=== PATIENT | female | born 1985 | race American Indian/Alaskan Native ===

== ENCOUNTER 2021-02-07 07:25 | Day surgery (SDC) | payer MEDICAID ==
[2021-02-07] MEDS ORDERED: SODIUM CHLORIDE 0.9% 1000 ML 1,000 ML IV SCH (08:00)
[2021-02-07] MEDS ORDERED: SODIUM CHLORIDE 0.9% 1000 ML 1,000 ML ONE (09:12)
--- NOTE | 2021-02-07 09:26 | Anesthesia Consultation ---
Anesthesia Consult and Med Hx Date of service: 02/07/21 - Airway Anesthetic Teeth Evaluation: Good ROM Head & Neck: Adequate Mental/Hyoid Distance: Adequate Mallampati Class: Class III Intubation Access Assessment: Possibly Difficult - Pre-Operative Health Status ASA Pre-Surgery Classification: ASA3 Proposed Anesthetic Plan: MAC - Pulmonary Hx Sleep Apnea: Yes - Cardiovascular System Hx Hypertension: Yes - Endocrine Hx Insulin Dependent Diabetes: Yes - Other Systems Hx Obesity: Yes (Morbid obesity, BMI 53.6) - Additional Comments Anesthesia Medical History Comments: bariatric evaluation
--- NOTE | 2021-02-07 09:27 | Anesthesia Day of Surgery ---
Anesthesia Day of Surgery - Day of Surgery Patient Examined: Yes Patient H&P Reviewed: Yes Patient is NPO: Yes
--- NOTE | 2021-02-07 09:29 | Discharge Summary ---
Providers - Providers Date of Admission: 02/07/2021 Date of discharge: 02/07/21 Attending physician: ERIK SOLORIO MD Primary care physician: MICKEY TOLEDO Hospitalization Reason for admission: s/p egd with bx Condition: Good Procedures: egd with bx Hospital course: Pt presented for a pre-op EGD as part of planning for up coming bariatric surgery. Procedure was uneventful and pt recovered well and was discharged to home. Disposition: DC- TO HOME OR SELFCARE Final Discharge Diagnosis (Prints w/discharge instructions): morbid obesity, gerd Core Measure Documentation - Palliative Care Palliative Care/ Comfort Measures: Not Applicable - Core Measures Any of the following diagnoses?: none Exam - Physical Exam Narrative exam: unchanged from pre-op Plan Activity: advance as tolerated Diet: low carbohydrate Follow up with: MICKEY TOLEDO MD [Primary Care Provider] - 7 Days
--- NOTE | 2021-02-07 09:30 | Operative Report ---
Operative Report Operative Report: DATE: 02/07/2021 SURGERY: Upper endoscopy. SURGEON: Andrade Pizano M.D. PROCEDURE: EGD with biopsy PRE OP DX: morbid obesity, GERD POST OP DX: morbid obesity, GERD TYPE OF ANESTHESIA: MAC. ESTIMATED BLOOD LOSS: None. COMPLICATIONS: None. SPECIMENS REMOVED: antral biopsy FINDINGS: 1. Small hiatal hernia. 2. antral gastritis INDICATIONS:INDICATION FOR PROCEDURE: Patient is a 35-year-old female with a long history of morbid obesity. She is planned to have a weight loss procedure and is here for preoperative planning EGD. PROCEDURE DETAILS: After consent was reviewed, patient was taken back to the operating room where patient was placed in the left lateral decubitus position and a bite block was placed in the mouth. After a time-out was called, MAC anesthesia was initiated. I then passed the endoscope into her oropharynx, into her esophagus, visualized the entire esophagus, which was all within normal limits. Z-line was noted to about 40cm from incisors. I then visualized the stomach and the first portion of the duodenum and there were no abnormalities I could clearly visualize except for antral gastritis. A cold forceps biopsy of the antrum was taken and will be sent to pathology to evaluate for H.pylori. I then retroflexed the scope in the stomach and visualized the hiatus and I could see a small hiatal hernia. I then desufflated the stomach and removed the endoscope. Patient tolerated procedure well and was transferred to recovery room in good and stable condition.
[2021-02-07] MEDS ORDERED: propofoL 200 MG/20 ML VIAL IV ONE (11:27)
[2021-02-07] MEDS ORDERED: fentaNYL 100 MCG/2 ML INJ ONE (11:27)
[2021-02-07] MEDS ORDERED: ONDANSETRON 4 MG/2 ML INJ ONE (11:27)
[2021-02-07 12:39] VITALS: BP 135/88
--- NOTE | 2021-02-07 17:25 | Post Anesthesia Evaluation ---
- Post Anesthesia Evaluation Patient Participated: Yes Airway Patent: Yes Stable Respiratory Function: Yes Nausea/Vomiting: No Temp > 96.8F: Yes Pain Manageable: Yes Adequeate Hydration: Yes Anesthesia Complications: No Block Receding Appropriately: Not Applicable Patient on Ventilator: No
== END 2021-02-07 07:26 | disposition home or self-care (01) ==
LOC: GIO 07:25
PROVIDERS: ATTEND Surgery
DX: K21.9 Gastro-esophageal reflux disease without esophagitis (principal); E66.01 Morbid (severe) obesity due to excess calories; K44.9 Diaphragmatic hernia without obstruction or gangrene; K29.70 Gastritis, unspecified, without bleeding; I10 Essential (primary) hypertension; J45.909 Unspecified asthma, uncomplicated; G47.30 Sleep apnea, unspecified; E11.9 Type 2 diabetes mellitus without complications; Z88.8 Allergy status to other drugs, medicaments and biological substances; Z68.43 Body mass index [BMI] 50.0-59.9, adult
CPT/HCPCS: 43239; 82962; 88305; 88342; J2405; J2704; J3010; J7030

== ENCOUNTER 2021-03-20 08:12 | Outpatient (CLI) | payer MEDICAID ==
--- NOTE | 2021-03-20 09:29 | Fluoroscopy Report ---
BARIUM SWALLOW Indication: MORBID OBESITY. Technique: Single and double contrast barium technique utilized to evaluate the esophagus. FINDINGS: To begin the exam, swallowing was evaluated in the lateral position under direct fluorosco py. Swallowing was normal. No mucosal irregularity, mass, mass effect, or critical stenosis. There were no abnormal tertiary c ontractions as seen with dysmotility. No gastroesophageal reflux. IMPRESSION: Unremarkable exam. Fluoroscopic time: 1.1 minutes Number of fluoroscopic images: 25 Signer Name: Be Campos Jr, MD Signed: 03/20/2021 9:25 AM Workstation Name: [id number]
== END 2021-03-20 08:13 | disposition home or self-care (01) ==
LOC: FLUORO 08:12
PROVIDERS: ATTEND Surgery
DX: E66.01 Morbid (severe) obesity due to excess calories (principal)
CPT/HCPCS: 74220

== ENCOUNTER 2021-04-10 06:13 | Inpatient (IN) | payer MEDICAID ==
[2021-04-05 10:47] LABS: Hematocrit 36.1 % (30.3-42.9); Hemoglobin 11.9 gm/dl (10.1-14.3); Mean Corpuscular HGB Conc 33 % (30-34); Mean Corpuscular Volume 82 fl (79-97); Platelet Count 344 K/mm3 (140-440); Red Blood Count 4.41 M/mm3 (3.65-5.03); Red Cell Distribution Width 15.1 % (13.2-15.2)
[2021-04-05 11:19] LABS: Alanine Aminotransferase 18 units/L (7-56); Albumin 3.8 g/dL (3.9-5); Blood Urea Nitrogen 16 mg/dL (7-17); Hemolysis Index 1
[2021-04-05 11:20] LABS: BUN/Creatinine Ratio 32
--- NOTE | 2021-04-05 14:15 | Anesthesia Consultation ---
Anesthesia Consult and Med Hx Date of service: 04/10/21 - Airway Anesthetic Teeth Evaluation: Chipped ROM Head & Neck: Adequate Mental/Hyoid Distance: Adequate Mallampati Class: Class III Intubation Access Assessment: Probably Good - Pre-Operative Health Status ASA Pre-Surgery Classification: ASA3 Proposed Anesthetic Plan: General - Pre-Anesthesia Comment Pre-Anesthesia Comments: Severe PONV - Pulmonary Hx Asthma: Yes (Last used inhaler 01/2021) Hx Sleep Apnea: Yes - Cardiovascular System Hx Hypertension: Yes (Mild, not being treated) Hx Coronary Artery Disease: No (+Cardiac/Pulmonary/PCP clearances) - Central Nervous System Hx Psychiatric Problems: No - Endocrine Hx Renal Disease: Yes (Stage 1) Hx Insulin Dependent Diabetes: Yes Hx Non-Insulin Dependent Diabetes: Yes (7.6) Hx Thyroid Disease: Yes (Goiter-thryoidectomy) - Hematic Hx Sickle Cell Disease: No - Other Systems Hx Cancer: No Hx Obesity: Yes (Morbid obesity, BMI 53.6)
[~2021-04-10 06:13] MED LIST: ACETAMINOPHEN IV 1,000 MG/100 ML BOTTLE IV NR; ENOXAPARIN 40 MG/0.4 ML INJ SUB-Q NR; GABAPENTIN 500 MG/10 ML ORAL LIQD PO NR; MIDAZOLAM 2 MG/2 ML INJ IV NR; SCOPOLAMINE TRANSDERMAL PATCH 72 HR TD NR; methOCARBAMOL 1,000 MG in SODIUM CHLORIDE 0.9% 250ML 250 ML IV NR; metroNIDAZOLE/NS 500 MG/100 ML 500 MG/100 ML BAG IV NR
[2021-04-10] MEDS: LACTATED RINGERS 1,000 ML IV SCH (06:59)
[2021-04-10] MEDS ORDERED: KETAMINE/STERILE WATER 50 MG/ML SYRINGE ONE ×2 (07:00→09:43)
--- NOTE | 2021-04-10 07:00 | Anesthesia Day of Surgery ---
Anesthesia Day of Surgery - Day of Surgery Patient Examined: Yes Patient H&P Reviewed: Yes Patient is NPO: Yes
[2021-04-10] MEDS ORDERED: propofoL 200 MG/20 ML VIAL IV ONE ×4 (07:01→11:09)
[2021-04-10] MEDS ORDERED: dexAMETHasone 20 MG/5 ML VIAL ONE (07:01)
[2021-04-10] MEDS ORDERED: MAGNESIUM SULFATE 4 GM/100 ML BAG IV ONE (07:02)
[2021-04-10] MEDS ORDERED: LIDOCAINE (1%) 10 MG/1 ML VIAL 20 ML MDV ONE ×2 (07:02→07:17)
[2021-04-10] MEDS ORDERED: LIDOCAINE 0.5%/EPINEPHRINE 1:200,000 VIAL (50 ML) MDV INFILTRATI ONE (07:17)
[2021-04-10] MEDS ORDERED: BUPIVACAINE/PF (0.25%) 2.5 MG/ML 30 ML VIAL INFILTRATI ONE ×3 (07:19→08:46)
[2021-04-10] MEDS ORDERED: LIDOCAINE 1%/EPINEPHRINE 1:100,000 VIAL (20 ML) INFILTRATI ONE ×2 (07:20→08:46)
[2021-04-10] MEDS ORDERED: MIDAZOLAM 2 MG/2 ML INJ ONE (08:20)
--- OUTSIDE RECORDS SUMMARY | 2021-04-10 08:20 | External Medical Summary ---
:1985 Author Organization [facility], [facility] Address [address] [place] [address] Care Team Providers Name Role Phone Andrade Pizano Unavailable [phone] PROBLEMS Type Condition ICD9-CM [id number] Onset Condition W/U Status Risk SNOM ED Notes Code Code Dates Status Code Problem Morbid E66.01 Active confirmed 961571753 (severe) obesity due to excess calories Problem Type 2 E11.9 Active confirmed 078069693 diabetes mellitus without complications Problem Gastro-esopha K21.9 Active confirmed 629396 005 geal reflux disease without esophagitis Problem Unspecified J45.909 Active confirmed 3676992 0 asthma, uncomplicated Problem Sleep apnea, G47.30 Active confirmed 6683309 6 unspecified ALLERGIES Allergen (clinical drug Drug/Non Drug Allergy Reaction Allergy Type Onset Date Status ingredient) documented on EMR Tree Nuts Unknown Drug Allergy Active ENCOUNTERS from 1983 to 2021-04-07 Encounter Location Date Provider Diagnosis [facility] [address] [facility] [place], Andrade Pizano Morbi d (severe) obesity [address] due to e xcess calories of [facility], E66.01 ; [place] [id number] diabetes melli tus without complic ations E11.9 ; Unspeci fied asthma, uncompl icated J45.909 and Sle ep apnea, unspecif ied G47.30 IMMUNIZATIONS No Information SOCIAL HISTORY Sex Assigned At : Social History Observation Description Sex Assigned At Unknown REASON FOR REFERRAL from 1985 to 2021-04-07 Diagnosis 1 Type 2 diabetes mellitus wit hout complications (E11.9) Diagnosis 2 Morbid (severe) obesity due to excess calories (E66.01) Diagnosis 3 Sleep apnea, unspecified (G4 7.30) Diagnosis 4 Unspecified asthma, uncompli cated (J45.909) Diagnosis 5 Gastro-esophageal reflux dis ease without esophagitis (K21.9) Diagnosis 6 Hidradenitis suppurativa (L7 3.2) Diagnosis 7 Low back pain (M54.5) Referral Organization [facility] Referring Provider First Name Andrade Referring Provider Last Name Jerica Referring Provider Specialty Surgery Referred Provider Formerly [facility], - Referral Priority Routine VITAL SIGNS Height 67.5 in Mar, Weight 338.6 lbs Mar, Temperature 97.5 degrees Fahrenheit Mar, BMI 52.24 kg/m2 Mar, Blood pressure systolic 149 mm Hg Mar, Blood pressure diastolic 94 mm Hg Mar, MEDICATIONS Medication SIG (Take, Route, Notes Start Date End Date Status Frequency, Duration) Humira 40 MG/0.8ML 0.8 ml Subcutaneous 1x/week. last Not-Taking for 30 day(s) dose 03/24 Basaglar KwikPen 100 as directed BID Act farhana UNIT/ML Subcutaneous Fluticasone-Salmeter Acti ve ol Montelukast Sodium 1 tablet Orally A ctive 10 MG Once a day for 30 day(s) Ondansetron 4 MG 1-2 tablet on the Mar, Active tongue and allow to dissolve Orally q 4-6 hours prn nausea for 30 day(s) Lisinopril 5 MG 1 tablet Orally Not- Taking Once a day for 30 day(s) Admelog SoloStar 100 as directed 90 units Act farhana UNIT/ML Subcutaneous before meals TID Acetaminophen 500 MG 1 tablet as needed Active Orally every 6 hrs Albuterol Sulfate prn Active HFA Omeprazole 40 MG 1 capsule 30 Mar, Acti ve minutes before morning meal Orally Once a day for 30 day(s) HYDROcodone-Acetamin 15 ml as needed Mar,Mar, Active ophen 7.5-325 Orally every 6 hrs 2020 MG/15ML for 7 days PROCEDURES No Information RESULTS No Results REASON FOR VISIT PreOp Bypass MEDICAL (GENERAL) HISTORY Type Description Date Medical History renal insufficiency Medical History htn Medical History anemia Medical History sleep apnea Medical History asthma Medical History gerd Medical History knee zohaib Medical History back pain Medical History hyadrenitis Surgical History 2014 Surgical History partrial thyroidectomy 12/2018 Surgical History hysteroscopy, D&C 08/2019 Hospitalization History as above Goals Section No Information Health Concerns No Information MEDICAL EQUIPMENT No Information MENTAL STATUS No Information FUNCTIONAL STATUS No Information ASSESSMENTS Encounter Date Diagnosis Assessment Notes Treatment Notes Treatm ent Clinical Notes Mar, Morbid (severe) An hour was spent obesity due to with patient excess calories reinforcing diet, (ICD-10 - E66.01) vitamin requirements and lifestyle education, A quiz was administered and reviewed to verify understanding of intended procedure and post operative care. Consent forms were reviewed with patient and signed answering all questions, Pre-operative labs were ordered. Mar, Type 2 diabetes Should resolve or mellitus without greatly improve complications with weight loss (ICD-10 - E11.9) after bariatric surgery. Mar, Unspecified asthma, Should improve with uncomplicated weight loss (ICD-10 - J45.909) Mar, Sleep apnea, Continue use of unspecified (ICD-10 CPAP machine, - G47.30) should resolve or greatly improve after weight loss surgery, and will titrate CPAP machine as tolerated. PLAN OF TREATMENT Medication Medication Name Sig Start Date Stop Date Ondansetron 4 MG 1-2 tablet on the tongue and Mar, allow to dissolve Orally q 4-6 hours prn nausea for 30 day(s) Omeprazole 40 MG 1 capsule 30 minutes before Mar, morning meal Orally Once a day for 30 day(s) HYDROcodone-Acetaminophen 15 ml as needed Orally every Mar, 2 021 Mar, 7.5-325 MG/15ML 6 hrs for 7 days Treatment Notes Assessment Notes Clinical Notes Morbid (severe) obesity due to An hour was spent with patien t excess calories reinforcing diet, vitamin requirements and lifestyle education, A quiz was administered and reviewed to verify understanding of intended procedure and post operative care. Consent forms were reviewed with patient and signed answering all questions, Pre-operative labs were ordered. Type 2 diabetes mellitus without Should resolve or greatly i mprove complications with weight loss after bariatric surgery. Unspecified asthma, uncomplicated Should improve with weight loss Sleep apnea, unspecified Continue use of CPAP machine, should resolve or greatly improve after weight loss surgery, and will titrate CPAP machine as tolerated. Referrals Referral Date Details Next Appt Details for surgery Reason: Provider Name:Andrade Pizano, 2021-03-3 0 09:30:00 AM, [address] [facility], [place], [place], [address], Insurance Providers Payer Name Payer Address Payer Insured Patient Coverage Cover age End Phone Name Relationship to Start Date Jeff e Insured [facility] [phone] Jaylon Covarrubias self /FORMERLY [facility] [id number]
[2021-04-10] MEDS ORDERED: SUCCINYLCHOLINE CHLORIDE 200 MG/10 ML INJ MDV ONE (08:26)
[2021-04-10] MEDS ORDERED: ceFAZolin 1 GM VIAL ONE (08:26)
[2021-04-10] MEDS ORDERED: ROCURONIUM 50 MG/5 ML INJ IV ONE (08:30)
[2021-04-10] MEDS ORDERED: ONDANSETRON 4 MG/2 ML INJ ONE ×2 (08:30→11:53)
[2021-04-10] MEDS ORDERED: SODIUM CHLORIDE 0.9% IRRIG SOLN 2000 ML IR ONE (08:46)
[2021-04-10] MEDS ORDERED: SODIUM CHLORIDE 0.9% IRR 1,500 ML BOTTLE IR ONE (08:46)
[2021-04-10] MEDS ORDERED: SUGAMMADEX SODIUM 200 MG/2 ML VIAL IV ONE (09:15)
[2021-04-10] MEDS ORDERED: SCOPOLAMINE TRANSDERMAL PATCH 72 HR TD SCH (10:00)
[2021-04-10] MEDS ORDERED: hydrALAZINE 20 MG/1 ML INJ IV PRN (11:46)
[2021-04-10] MEDS ORDERED: HYDROcodone/Acetaminophen 7.5-325MG-15ML ORAL LIQD PO PRN (11:46)
[2021-04-10] MEDS ORDERED: SIMETHICONE 80 MG CHEW TAB PO PRN (11:46)
[2021-04-10] MEDS ORDERED: HYDROmorphone 1 MG/1 ML INJ IV PRN (11:46)
[2021-04-10] MEDS ORDERED: ONDANSETRON 4 MG/2 ML INJ IV PRN (11:46)
[2021-04-10] MEDS ORDERED: MORPHINE 2 MG/1 ML INJ IV PRN (11:46)
[2021-04-10] MEDS ORDERED: DEXTROSE 50% IN WATER (25GM) 50 ML SYRINGE IV PRN (11:50)
[2021-04-10] MEDS ORDERED: ALBUTEROL 8.5 GM MDI INHALATION IH PRN (11:50)
--- NOTE | 2021-04-10 11:58 | Operative Report ---
Operative Report Operative Report: DATE OF PROCEDURE: 04/10/2021 SURGEON: Andrade Pizano M.D. SHEET METAL APPRENTICE: Isi Han CSA MD PREOPERATIVE DIAGNOSIS: Morbid obesity. POSTOPERATIVE DIAGNOSES: Morbid obesity PROCEDURES PERFORMED: 1. Laparoscopic gastric bypass. 2. EGD. ANESTHESIA: General endotracheal tube intubation, TAP block SPECIMENS: None. ESTIMATED BLOOD LOSS: Less than 20 mL. FINDINGS: Normal anatomy. COMPLICATIONS: None. INDICATION: Ms. Covarrubias is a 35-year-old female with history of morbid obesity and diabetes who is here for bariatric surgery for weight loss. She signed informed consent and expressed understanding of risks and benefits. DESCRIPTION OF PROCEDURE: Patient was brought to the OR suite, laid in supine position. Bilateral lower extremity SCDs were placed. General anesthesia was induced via successful endotracheal tube intubation. Patient's abdomen was prepped and draped in sterile fashion. A veress needle was used to insuflate the abdomen to a pressure of 18 mmHg in the left subcostal region. Using Optiview technique, a 5- mm trocar was placed into the abdominal cavity under direct vision just superior and to the left of the umbilicus. There was noted to be no gross injury to any intraabdominal structures. 12 mm in the right mid abdomen mid clavicular line and three 5-mm trocars in the right upper quadrant, epigastric areas were placed under direct visualization. At this time, the ligament of Treitz identified and followed down approximately 75 cm and the jejunum was transected. The distal segment of jejunum was then traced for approximately 100 cm and a stable wdue-as-eulm jejunojejunostomy was performed. The common enterotomy was closed with 2 firings of the endoscopic stapler. The mesenteric defect was closed with running Surgidac suture. This anastomosis was found to be patent without kink, obstruction or bleeding. At this time, the patient was placed in steep reverse Trendelenburg position. A liver retractor was placed through the epigastric port to elevate the left lateral lobe of the liver. A small gastric pouch was formed with serial firings of the blue load on a laparoscopic stapler. The Alejandrina limb was then brought in an antegastric antecolic fashion and secured with 2 stay sutures to the gastric pouch. After this, the enterotomies were made with Harmonic scalpel, and a pyju-ij-qfob stapled gastrojejunostomy was performed with a mechanical stapler. After this, a 2-layer running closure using absorbable V-lock suture were done, the first being mucosal approximation prior to completion of the first layer. Then I passed and an EGD scope beyond the anastomosis to act as a stent. The first layer was completed, the second was then performed. After this, the EGD was retracted slightly. A bowel clamp was placed in a proximal Alejandrina limb. The anastomosis was submerged under saline. Via intraluminal EGD insufflation, there was noted be no bubbles in the saline indicating an airtight anastomosis. There was noted to be no obstruction or bleeding intraluminally in the pouch or the anastomosis. At this time, the scope was removed. The saline was aspirated. Tiseel was placed over the anastomosis. All trocars were removed under direct visualization and the abdomen was then desufflated. A TAP block was performed using a total of 60 mL 0.25% Marcaine along bilateral mid axillary lines starting at the subcostal margin at the level of the umbilicus. The 12mm trocar site was closed using POD and a Brandon Suzie device for fear that after surgery it become incarcerated. The skin incisions were closed with 4-0 Monocryl followed by Dermabond dressings. Patient was awoken and taken to recovery in stable condition. All counts were correct.
[2021-04-10] MEDS ORDERED: INSULIN LISPRO 100 UNIT/ML SUB-Q ONE (12:00)
[2021-04-10] MEDS ORDERED: INSULIN LISPRO 100 UNIT/ML SUB-Q NR (12:00)
[2021-04-10] MEDS ORDERED: ALBUTEROL 2.5 MG/3 ML NEBU IH PRN (12:00)
[2021-04-10] MEDS: KETOROLAC 30 MG/1 ML INJ IV SCH ×2 (13:26→21:20)
--- NOTE | 2021-04-10 14:30 | Post Anesthesia Evaluation ---
- Post Anesthesia Evaluation Patient Participated: Yes Airway Patent: Yes Stable Respiratory Function: Yes Nausea/Vomiting: No Temp > 96.8F: Yes Pain Manageable: Yes Adequeate Hydration: Yes Anesthesia Complications: No
[2021-04-10] MEDS: METOCLOPRAMIDE 10 MG/2 ML INJ IV PRN (21:12)
[2021-04-10] MEDS: ACETAMINOPHEN IV 1,000 MG/100 ML BOTTLE IV SCH (21:13)
[2021-04-10] MEDS: metroNIDAZOLE/NS 500 MG/100 ML 500 MG/100 ML BAG IV SCH (21:14)
[2021-04-11] MEDS: ceFAZolin/NS 1 GM/50 ML 1 GM/50 ML BAG IV SCH ×3 (00:16→03:55)
[2021-04-11] MEDS: ACETAMINOPHEN IV 1,000 MG/100 ML BOTTLE IV SCH ×3 (02:11→10:44)
[2021-04-11] MEDS: KETOROLAC 30 MG/1 ML INJ IV SCH ×4 (02:11→18:32)
[2021-04-11] MEDS: metroNIDAZOLE/NS 500 MG/100 ML 500 MG/100 ML BAG IV SCH ×2 (03:52→10:43)
[2021-04-11 04:52] LABS: Basophils % (Auto) 0.1 % (0.0-1.8); Hematocrit 32.8 % (30.3-42.9); Hemoglobin 10.9 gm/dl (10.1-14.3); Lymphocytes % (Auto) 13.8 % (13.4-35.0); Mean Corpuscular HGB Conc 33 % (30-34); Mean Corpuscular Volume 82 fl (79-97); Monocytes # (Auto) 1.1 K/mm3 (0.0-0.8); Monocytes % (Auto) 7.2 % (0.0-7.3); Platelet Count 333 K/mm3 (140-440); Red Blood Count 4.01 M/mm3 (3.65-5.03); Red Cell Distribution Width 14.9 % (13.2-15.2)
[2021-04-11 05:07] LABS: Alanine Aminotransferase 25 units/L (7-56); Albumin 3.7 g/dL (3.9-5); Blood Urea Nitrogen 7 mg/dL (7-17); Hemolysis Index 2
[2021-04-11 05:12] LABS: BUN/Creatinine Ratio 12
[2021-04-11] MEDS: LACTATED RINGERS 1,000 ML IV SCH ×2 (06:30→18:31)
[2021-04-11] MEDS: ENOXAPARIN 40 MG/0.4 ML INJ SUB-Q SCH (10:44)
[2021-04-11] MEDS: PANTOPRAZOLE 40 MG INJ IV SCH (10:44)
[2021-04-11] MEDS: METOCLOPRAMIDE 10 MG/2 ML INJ IV PRN (14:52)
[2021-04-11] MEDS ORDERED: METOCLOPRAMIDE 10 MG/2 ML INJ IV SCH (16:00)
--- NOTE | 2021-04-11 16:51 | Progress Note ---
Assessment and Plan POD#1 s/p lap gastric bypass. afebrile and stable with nausea that is suboptimally controlled. Not taking sufficient liquids orally to be discharged tomorrow. Will start around the clock reglan and get UGI in am if no improvement overnight. Subjective Date of service: 04/11/21 Narrative: Pt said she was feeling better compared to last night where she was having a lot of nausea and some vomiting. She was ambulating when I saw her but began to have nausea again and dry heaving again. Objective Vital Signs - 12hr 04/11/21 04/11/21 08:34 08:37 O2 Sat by Pulse 98 93 Oximetry - General physical appearance well developed, obese - Respiratory normal expansion, normal respiratory effort - Abdomen soft, other (incisions c/d/i, appropriately tender to palpation) - Labs 04/11/21 04:02 04/11/21 04:02 Diabetes panel 04/11/21 Range/Units 04:02 Sodium 136 L (137-145) mmol/L Potassium 4.4 (3.6-5.0) mmol/L Chloride 101.8 (98-107) mmol/L Carbon Dioxide 26 (22-30) mmol/L BUN 7 (7-17) mg/dL Creatinine 0.6 (0.6-1.2) mg/dL Glucose 232 H (65-100) mg/dL Calcium 9.0 (8.4-10.2) mg/dL AST 22 (5-40) units/L ALT 25 (7-56) units/L Alkaline Phosphatase 60 (35-129) units/L Total Protein 7.9 (6.3-8.2) g/dL Albumin 3.7 L (3.9-5) g/dL Calcium panel 04/11/21 Range/Units 04:02 Calcium 9.0 (8.4-10.2) mg/dL Albumin 3.7 L (3.9-5) g/dL Pituitary panel 04/11/21 Range/Units 04:02 Sodium 136 L (137-145) mmol/L Potassium 4.4 (3.6-5.0) mmol/L Chloride 101.8 (98-107) mmol/L Carbon Dioxide 26 (22-30) mmol/L BUN 7 (7-17) mg/dL Creatinine 0.6 (0.6-1.2) mg/dL Glucose 232 H (65-100) mg/dL Calcium 9.0 (8.4-10.2) mg/dL Adrenal panel 04/11/21 Range/Units 04:02 Sodium 136 L (137-145) mmol/L Potassium 4.4 (3.6-5.0) mmol/L Chloride 101.8 (98-107) mmol/L Carbon Dioxide 26 (22-30) mmol/L BUN 7 (7-17) mg/dL Creatinine 0.6 (0.6-1.2) mg/dL Glucose 232 H (65-100) mg/dL Calcium 9.0 (8.4-10.2) mg/dL Total Bilirubin 0.40 (0.1-1.2) mg/dL AST 22 (5-40) units/L ALT 25 (7-56) units/L Alkaline Phosphatase 60 (35-129) units/L Total Protein 7.9 (6.3-8.2) g/dL Albumin 3.7 L (3.9-5) g/dL
[2021-04-11] MEDS: METOCLOPRAMIDE 10 MG/2 ML INJ IV SCH ×2 (18:33→23:45)
[2021-04-12] MEDS: KETOROLAC 30 MG/1 ML INJ IV SCH ×2 (00:50→05:42)
[2021-04-12] MEDS: LACTATED RINGERS 1,000 ML IV SCH (02:30)
[2021-04-12 04:43] VITALS: BP 144/76
[2021-04-12] MEDS: METOCLOPRAMIDE 10 MG/2 ML INJ IV SCH ×2 (05:42→10:39)
[2021-04-12 05:57] LABS: Basophils # (Auto) 0.1 K/mm3 (0.0-0.1); Basophils % (Auto) 0.5 % (0.0-1.8); Eosinophils # (Auto) 0.1 K/mm3 (0.0-0.4); Eosinophils % (Auto) 0.7 % (0.0-4.3); Hematocrit 31.5 % (30.3-42.9); Hemoglobin 10.3 gm/dl (10.1-14.3); Lymphocytes # (Auto) 4.5 K/mm3 (1.2-5.4); Lymphocytes % (Auto) 36.7 % (13.4-35.0); Mean Corpuscular HGB Conc 33 % (30-34); Mean Corpuscular Volume 82 fl (79-97); Monocytes # (Auto) 0.8 K/mm3 (0.0-0.8); Monocytes % (Auto) 6.7 % (0.0-7.3); Platelet Count 320 K/mm3 (140-440); Red Blood Count 3.85 M/mm3 (3.65-5.03); Red Cell Distribution Width 14.9 % (13.2-15.2)
[2021-04-12 06:07] LABS: Alanine Aminotransferase 19 units/L (7-56); Albumin 3.4 g/dL (3.9-5); Blood Urea Nitrogen 10 mg/dL (7-17); Calcium 8.7 mg/dL (8.4-10.2); Hemolysis Index 10
[2021-04-12 06:23] LABS: BUN/Creatinine Ratio 20
--- NOTE | 2021-04-12 09:59 | Discharge Summary ---
Providers - Providers Date of Admission: 04/10/21 06:13 Date of discharge: 04/12/21 Attending physician: ERIK SOLORIO MD 04/10/21 11:46 Physical Therapy Evaluation and Treat [CONS] Routine Comment: Reason For Exam: s/p bariatric surgery Primary care physician: MICKEY TOLEDO Hospitalization Reason for admission: s/p bariatric surgery Condition: Good Procedures: laparoscopic gastric bypass Hospital course: Pt was admitted after an uneventful lap gastric bypass. She remained stable and afebrile. She struggled with nausea which limited her oral intake on postop day one. Patient was put on fqbxfe-akh-wgfah Reglan which improved her symptoms and she had an upper GI postop day two that showed no obstruction or extravasation. Patient clinically felt much better and was tolerating liquids without difficulty. She was walking easily and pain was controlled. She was discharged to home with no clinical signs of leak or bleeding. Disposition: 01 HOME / SELF CARE / HOMELESS Final Discharge Diagnosis (Prints w/discharge instructions): morbid obesity, DM, sleep apnea Core Measure Documentation - Palliative Care Palliative Care/ Comfort Measures: Not Applicable - Core Measures Any of the following diagnoses?: none Exam - Constitutional Vitals: Temp Pulse Resp BP Pulse Ox 98.2 F 65 16 144/76 98 04/12/21 03:39 04/12/21 03:39 04/12/21 03:39 04/12/21 03:39 04/12/21 08:43 General appearance: Present: no acute distress, obese - Respiratory Respiratory effort: normal - Cardiovascular Heart Sounds: Present: S1 & S2 - Extremities Extremities: no ischemia (Incisions clean dry and intact, appropriately tender to palpation) Plan Activity: advance as tolerated Diet: clear liquids Wound: open to air, keep clean and dry Follow up with: MICKEY TOLEDO MD [Primary Care Provider] - 7 Days
--- NOTE | 2021-04-12 10:03 | Fluoroscopy Report ---
UPPER GI HISTORY: post gastric bypass with nausea. TECHNIQUE: Single contrast Gastrografin technique utilized to evaluate postop gastric bypass patient . FINDINGS: A modified examination was performed with Gastrografin to evaluate gastric bypass changes. The distal esophagus and GE junction are unremarkable. Gastric bypass changes are evident. Small brandie clara pouch in the left upper quadrant appears intact. Anastomosis to small bowel loops is also intact. There is brisk passage of the Gastrografin contrast agent into multiple normal caliber small bowel l oops in the left abdomen. There is no evidence for obstruction or extravasation. No gastroesophageal reflux was witnessed. IMPRESSION: Unremarkable exam. Gastric bypass changes are noted with no evidence for obstruction or extravasation. Fluoroscopic time: 1.0 minutes Number of fluoroscopic images: 48 Signer Name: Be Campos Jr, MD Signed: 04/12/2021 9:59 AM Workstation Name: [id number]
[2021-04-12] MEDS: PANTOPRAZOLE 40 MG INJ IV SCH (10:39)
[2021-04-12] MEDS: ENOXAPARIN 40 MG/0.4 ML INJ SUB-Q SCH (10:39)
[2021-04-13] MEDS ORDERED: SCOPOLAMINE TRANSDERMAL PATCH 72 HR TD SCH (12:00)
== END 2021-04-12 12:10 | disposition home or self-care (01) | DRG 621 ==
LOC: 3A 06:13 → 4A 13:25
PROVIDERS: ADMIT Surgery; ATTEND Surgery
PROC: 0D164ZA Bypass Stomach to Jejunum, Percutaneous Endoscopic Approach (ICD-10-PCS; principal; 2021-04-10)
PROC: 0DJ08ZZ Inspection of Upper Intestinal Tract, Via Natural or Artificial Opening Endoscopic (ICD-10-PCS; 2021-04-10)
DX: E66.01 Morbid (severe) obesity due to excess calories (principal); Z68.43 Body mass index [BMI] 50.0-59.9, adult; G47.30 Sleep apnea, unspecified; I12.9 Hypertensive chronic kidney disease with stage 1 through stage 4 chronic kidney disease, or unspecified chronic kidney disease; N18.1 Chronic kidney disease, stage 1; E11.22 Type 2 diabetes mellitus with diabetic chronic kidney disease; J45.909 Unspecified asthma, uncomplicated; Z91.018 Allergy to other foods; Z20.822 Contact with and (suspected) exposure to COVID-19
CPT/HCPCS: 36415; 74246; 80053; 82962; 84703; 85025; 85027; 94660; G0378; A4217; C9113; C9250; J0131; J0330; J0690; J1100; J1650; J1815; J1885; J2250; J2405; J2704; J2765; J3475; J3490; J7120; Q9963; U0003

== ENCOUNTER 2021-05-11 10:36 | Outpatient (CLI) | payer MEDICAID ==
[2021-05-11 11:09] LABS: Basophils # (Auto) 0.2 K/mm3 (0.0-0.1); Basophils % (Auto) 1.3 % (0.0-1.8); Eosinophils # (Auto) 0.4 K/mm3 (0.0-0.4); Eosinophils % (Auto) 3.2 % (0.0-4.3); Hematocrit 33.9 % (30.3-42.9); Hemoglobin 10.7 gm/dl (10.1-14.3); Lymphocytes # (Auto) 4.1 K/mm3 (1.2-5.4); Lymphocytes % (Auto) 33.2 % (13.4-35.0); Mean Corpuscular HGB Conc 32 % (30-34); Mean Corpuscular Volume 81 fl (79-97); Monocytes # (Auto) 0.8 K/mm3 (0.0-0.8); Monocytes % (Auto) 6.2 % (0.0-7.3); Platelet Count 410 K/mm3 (140-440); Red Blood Count 4.21 M/mm3 (3.65-5.03); Red Cell Distribution Width 14.8 % (13.2-15.2)
[2021-05-11 11:31] LABS: Alanine Aminotransferase 20 units/L (7-56); Albumin 3.8 g/dL (3.9-5); Blood Urea Nitrogen 8 mg/dL (7-17); Calcium 9.3 mg/dL (8.4-10.2); Chol/HDL Ratio 4.73 %; HDL Cholesterol 23 mg/dL (40-59); Hemolysis Index 4; Iron 38 ug/dL (37-170); LDL Cholesterol,Direct 72 mg/dL (50-130); Total Iron Binding Capacity 314 mcg/dL (250-450)
[2021-05-11 11:43] LABS: BUN/Creatinine Ratio 16
[2021-05-15 12:47] LABS: Vitamin D, 25-OH, D2 <4 ng/mL
== END 2021-05-11 10:37 | disposition home or self-care (01) ==
LOC: LAB 10:36
PROVIDERS: ATTEND Surgery
DX: E55.9 Vitamin D deficiency, unspecified (principal); E66.01 Morbid (severe) obesity due to excess calories; K30 Functional dyspepsia; E11.9 Type 2 diabetes mellitus without complications; K90.9 Intestinal malabsorption, unspecified; Z98.84 Bariatric surgery status
CPT/HCPCS: 36415; 80053; 80061; 82306; 82607; 82728; 83036; 83550; 83970; 84425; 84443; 85025

== ENCOUNTER 2022-04-11 10:54 | Outpatient (CLI) | payer MEDICAID ==
[2022-04-11 11:56] LABS: Basophils # (Auto) 0.1 K/mm3 (0.0-0.1); Basophils % (Auto) 0.7 % (0.0-1.8); Eosinophils # (Auto) 0.3 K/mm3 (0.0-0.4); Eosinophils % (Auto) 2.1 % (0.0-4.3); Hematocrit 29.3 % (30.3-42.9); Hemoglobin 9.4 gm/dl (10.1-14.3); Lymphocytes # (Auto) 4.1 K/mm3 (1.2-5.4); Lymphocytes % (Auto) 28.5 % (13.4-35.0); Mean Corpuscular HGB Conc 32 % (30-34); Mean Corpuscular Volume 76 fl (79-97); Monocytes # (Auto) 1.1 K/mm3 (0.0-0.8); Monocytes % (Auto) 7.3 % (0.0-7.3); Platelet Count 394 K/mm3 (140-440); Red Blood Count 3.84 M/mm3 (3.65-5.03); Red Cell Distribution Width 16.5 % (13.2-15.2)
[2022-04-11 12:11] LABS: % Iron Saturation 8.39 %; Alanine Aminotransferase 19 units/L (7-56); Albumin 3.6 g/dL (3.9-5); Blood Urea Nitrogen 11 mg/dL (7-17); Calcium 9.2 mg/dL (8.4-10.2); Chol/HDL Ratio 3.09 %; HDL Cholesterol 32 mg/dL (40-59); Hemolysis Index 0; Iron 24 ug/dL (37-170); LDL Cholesterol,Direct 61 mg/dL (50-130); Total Iron Binding Capacity 286 mcg/dL (250-450)
[2022-04-11 12:14] LABS: BUN/Creatinine Ratio 18
== END 2022-04-11 10:55 | disposition home or self-care (01) ==
LOC: LAB 10:54
PROVIDERS: ATTEND Surgery
DX: Z13.21 Encounter for screening for nutritional disorder (principal); Z13.29 Encounter for screening for other suspected endocrine disorder; E66.01 Morbid (severe) obesity due to excess calories; E11.9 Type 2 diabetes mellitus without complications; K90.9 Intestinal malabsorption, unspecified; E55.9 Vitamin D deficiency, unspecified; K30 Functional dyspepsia; Z98.84 Bariatric surgery status
CPT/HCPCS: 36415; 80053; 80061; 82607; 82728; 83036; 83550; 83970; 84425; 84443; 85025